=== PATIENT | male | born 1980 | race African-American/Black ===

== ENCOUNTER 2016-07-25 13:01 | Emergency (ER) | payer OTHER, BC ==
[~2016-07-25] VITALS: Ht 157.5 cm; Wt 90.7 kg
[2016-07-25 13:30] VITALS: BP 113/55
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
[2016-07-25] MEDS ORDERED: CYCL10TA2 PO (14:48)
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
== END 2016-07-25 15:10 | disposition home or self-care (01) ==
LOC: ER 13:01
DX: S16.1XXA Strain of muscle, fascia and tendon at neck level, initial encounter (principal); M54.5 Low back pain; K21.9 Gastro-esophageal reflux disease without esophagitis; V49.49XA Driver injured in collision with other motor vehicles in traffic accident, initial encounter; Y93.89 Activity, other specified; Y99.8 Other external cause status; Y92.488 Other paved roadways as the place of occurrence of the external cause
CPT/HCPCS: 72125; 99284-25